=== PATIENT | male | born 1945 | race Caucasian/White ===

== ENCOUNTER 2019-02-05 08:45 | Day surgery (SDC) | payer MEDICARE, OTHER ==
[2019-02-05] MEDS ORDERED: LACTATED RINGERS 1,000 ML IV ONE (09:05)
[2019-02-05] MEDS ORDERED: MIDAZOLAM 2 MG/2 ML VIAL IVP ONE (09:43)
[2019-02-05] MEDS ORDERED: fentaNYL 250 MCG/5 ML VIAL IVP ONE (09:43)
[2019-02-05 10:33] VITALS: BP 94/57
== END 2019-02-05 08:46 | disposition home or self-care (01) ==
LOC: SDS 08:45
PROVIDERS: ATTEND Internal Medicine Gastroenterology
PROC: 0DJD8ZZ Inspection of Lower Intestinal Tract, Via Natural or Artificial Opening Endoscopic (ICD-10-PCS; principal; 2019-02-05 09:45)
DX: Z12.11 Encounter for screening for malignant neoplasm of colon (principal); C61 Malignant neoplasm of prostate; Z72.0 Tobacco use
CPT/HCPCS: G0121; J7120

== ENCOUNTER 2020-11-05 09:15 | Outpatient (CLI) | payer MEDICARE | END 2020-11-05 09:16 | disposition home or self-care (01) | LOC: LAB.S 09:15 | PROVIDERS: ATTEND Family Medicine | DX: Z85.46 Personal history of malignant neoplasm of prostate (principal) | CPT/HCPCS: 36415; 84153 ==

== ENCOUNTER 2021-07-06 11:16 | Outpatient (CLI) | payer MEDICARE | END 2021-07-06 11:17 | disposition home or self-care (01) | LOC: LAB.S 11:16 | PROVIDERS: ATTEND Radiology Radiation Oncology | DX: Z08 Encounter for follow-up examination after completed treatment for malignant neoplasm (principal); Z85.46 Personal history of malignant neoplasm of prostate | CPT/HCPCS: 36415; 84153 ==

== ENCOUNTER 2021-12-28 10:08 | Outpatient (CLI) | payer MEDICARE | END 2021-12-28 10:09 | disposition home or self-care (01) | LOC: LAB.S 10:08 | PROVIDERS: ATTEND Radiology Radiation Oncology | DX: C61 Malignant neoplasm of prostate (principal) | CPT/HCPCS: 36415; 84153 ==

== ENCOUNTER 2022-07-05 13:35 | Outpatient (CLI) | payer MEDICARE | END 2022-07-05 13:36 | disposition home or self-care (01) | LOC: LAB.S 13:35 | PROVIDERS: ATTEND Radiology Radiation Oncology | DX: C61 Malignant neoplasm of prostate (principal) | CPT/HCPCS: 36415; 84153 ==

== ENCOUNTER 2022-07-26 09:27 | Outpatient (CLI) | payer MEDICARE ==
--- NOTE | 2022-07-26 16:02 | XRAY Report ---
PROCEDURE: Hips 2V BILAT INDICATIONS: BILATERAL HIP PAIN TECHNIQUE: 2 views of each hip was obtained COMPARISON: None. FINDINGS: Bones: No fractures or dislocations. No suspicious bony lesions. Joint spaces are preserved Soft tissues: No suspicious soft tissue calcifications or masses. Fiducial markers noted in the pros lance IMPRESSION: No acute bony abnormality. Reviewed by: Moe Cornejo MD on 07/26/2022 3:01 PM [facility] Approved by: Moe Cornejo MD on 07/26/2022 3:01 PM [facility] Station ID: [id number]
== END 2022-07-26 09:28 | disposition home or self-care (01) ==
LOC: DI.S 09:27
PROVIDERS: ATTEND Family Medicine
DX: M25.551 Pain in right hip (principal)

== ENCOUNTER 2023-01-11 08:24 | Outpatient (CLI) | payer MEDICARE | END 2023-01-11 08:25 | disposition home or self-care (01) | LOC: LAB.S 08:24 | PROVIDERS: ATTEND Radiology Radiation Oncology | DX: Z08 Encounter for follow-up examination after completed treatment for malignant neoplasm (principal); Z85.46 Personal history of malignant neoplasm of prostate | CPT/HCPCS: 36415; 84153 ==

== ENCOUNTER 2023-02-05 08:00 | Outpatient (CLI) | payer MEDICARE | END 2023-02-05 23:59 | disposition home or self-care (01) | LOC: LAB.S 08:00 | PROVIDERS: ATTEND Physician Assistant | DX: U07.1 COVID-19 (principal) ==

== ENCOUNTER 2023-02-05 08:00 | Outpatient (CLI) | payer MEDICARE ==
--- NOTE | 2023-02-05 12:22 | XRAY Report ---
PROCEDURE: Chest 2 View X-Ray INDICATIONS: ACUTE BRONCHITIS TECHNIQUE: 2 views of the chest were obtained. COMPARISON: None. FINDINGS: Surgical changes and devices: None. Lungs and pleura: No pleural effusions or pneumothorax. Lungs are clear. Mediastinum: Mediastinal contours appear normal. Heart size is normal. Bones and chest wall: No suspicious bony lesions. Overlying soft tissues appear unremarkable. IMPRESSION: Normal two-view chest x-ray Reviewed by: Moe Cornejo MD on 02/05/2023 11:20 AM [facility] Approved by: Moe Cornejo MD on 02/05/2023 11:20 AM [facility] Station ID: [id number]
== END 2023-02-05 23:59 | disposition home or self-care (01) ==
LOC: DI.S 08:00
PROVIDERS: ATTEND Physician Assistant
DX: J20.9 Acute bronchitis, unspecified (principal)

== ENCOUNTER 2023-10-26 13:51 | Outpatient (CLI) | payer MEDICARE ==
--- NOTE | 2023-10-26 18:50 | XRAY Report ---
PROCEDURE: Hips w/Pelvis 2-3V BL INDICATIONS: BILAT HIP JOINT PAIN TECHNIQUE: 2 view(s) of the hip were acquired. COMPARISON: 07/26/2022. FINDINGS: Bones: No fractures or dislocations. Mild left hip joint osteoarthritic changes are seen. No evidenc e of avascular necrosis of femoral head. No suspicious bony lesions. The visualized pelvic ring appe ars intact. Soft tissues: No suspicious soft tissue calcifications or masses. IMPRESSION: Mild left hip joint osteoarthritis. No acute fracture or dislocation. No evidence of avascular necros is. Reviewed by: Zander Van MD on 10/26/2023 6:49 PM PDT Approved by: Zander Van MD on 10/26/2023 6:49 PM PDT Station ID: [id number]
--- NOTE | 2023-10-26 18:50 | XRAY Report ---
PROCEDURE: Elbow 3+V LT INDICATIONS: ELBOW JOINT PAIN TECHNIQUE: 3 views of the elbow were acquired. COMPARISON: None. FINDINGS: Bones: No fractures or dislocations. Severe elbow joint osteoarthritic changes are seen. Chronic ap pearing deformity involving radial head with remodeling at its articulation with capitellum. No suspi cious bony lesions. Soft tissues: Moderate effusion. Amorphous calcifications are seen surrounding elbow joint concerni ng for heterotopic calcification secondary to remote injury. IMPRESSION: No acute elbow fracture or dislocation. Chronic appearing deformity involving proximal radial head an d neck. Severe elbow joint osteoarthritis. Extensive soft tissue calcifications and moderate joint ef fusion suggestive of sequela from remote injury. Reviewed by: Zander Van MD on 10/26/2023 6:48 PM PDT Approved by: Zander Van MD on 10/26/2023 6:48 PM PDT Station ID: [id number]
== END 2023-10-26 13:52 | disposition home or self-care (01) ==
LOC: DI.S 13:51
PROVIDERS: ATTEND Registered Nurse
DX: M25.551 Pain in right hip (principal); M16.12 Unilateral primary osteoarthritis, left hip; M19.022 Primary osteoarthritis, left elbow; M21.922 Unspecified acquired deformity of left upper arm; M25.422 Effusion, left elbow